=== PATIENT | female | born 1990 | race Caucasian/White ===

== ENCOUNTER → 2020-04-05 | Outpatient (CLI) | payer OTHER ==
[~2020-04-05] MED LIST: BACTRIM 400-801 EACH PO; CEPHALEXIN500 MG PO; PERCOCET 5/325 T1 EA PO; PRENATAL VITAM1 EAC3 PO; ZOFRAN ODT 4 MG4 MG GT
== END ==
LOC: KOH-I 10:06
DX: M25.561 Pain in right knee (principal); M25.461 Effusion, right knee
CPT/HCPCS: 73564

== ENCOUNTER 2020-05-25 21:56 | Emergency (ER) | payer OTHER ==
[~2020-05-25 21:56] MED LIST changes: -BACTRIM 400-801 EACH PO; -CEPHALEXIN500 MG PO
[2020-05-25] MEDS ORDERED: BACTRIM 400-801 EACH PO (23:15)
[2020-05-25] MEDS ORDERED: CEPHALEXIN500 MG PO (23:15)
== END 2020-05-25 23:50 | disposition home or self-care (01) ==
LOC: ER1 21:56
DX: L03.116 Cellulitis of left lower limb (principal); L03.115 Cellulitis of right lower limb; M23.91 Unspecified internal derangement of right knee
CPT/HCPCS: 73562; 99283